=== PATIENT | male | born 1990 | race Caucasian/White ===

== ENCOUNTER 2018-02-03 09:25 | Emergency (ER) | payer OTHER ==
[2018-02-03 09:51] VITALS: BP 156/99; PULSE 76; TEMP 97.8; BMI 29.8
--- NOTE | 2018-02-03 10:45 | PDOC ---
History of Present Illness - General Chief Complaint: Toothache Stated Complaint: LT ARM NUMBNESS, MOUTH PAIN Time Seen by Provider: 02/03/18 10:34 History Source: Patient Exam Limitations: No Limitations - History of Present Illness Initial Comments: 02/03/18 10:40 Patient is a 27-year-old male, denies any significant medical history currently on no medication no allergies, presents with a left lower first molar pain. Pain started yesterday. No facial edema. No difficulty swallowing. Decayed tooth noted to area. No fever, denies any chest pain or shortness of breath. Has been decayed for several years. Has not contacted dental before today. Has not attempted to take any medication. Past Medical History: Denies. Allergies: No known allergies Medications: None Family History: Non-contributory Social History: Denies smoking, alcohol use, or IVDU Review of Systems GENERAL/CONSTITUTIONAL: No fever or chills. No weakness. No weight change. HEAD, EYES, EARS, NOSE AND THROAT: No change in vision. No ear pain or discharge. No sore throat. Left first lower molar pain CARDIOVASCULAR: No chest pain or shortness of breath. RESPIRATORY: No cough, wheezing, or hemoptysis. GASTROINTESTINAL: No nausea, vomiting, diarrhea or constipation. No rectal bleeding. GENITOURINARY: No dysuria, frequency, or change in urination. MUSCULOSKELETAL: No joint or muscle swelling or pain. No neck or back pain. SKIN AND BREASTS: No rash or easy bruising. NEUROLOGIC: No headache, vertigo, loss of consciousness, or loss of sensation. PSYCHIATRIC: No depression or anxiety. ENDOCRINE: No increased thirst. No abnormal weight change. HEMATOLOGIC/LYMPHATIC: No anemia, easy bleeding, or history of blood clots. ALLERGIC/IMMUNOLOGIC: No hives or skin allergy. No latex allergy. Physical Exam: GENERAL: The patient is awake, alert, and fully oriented, in no acute distress. EYES: Pupils equal, round and reactive to light, extraocular movements intact, sclera anicteric, conjunctiva clear. ENT: Ears normal, nares patent, oropharynx clear without exudates. Moist mucous membranes. No uvula deviation. Left first lower molar decay, root exposed , gumline intact, no visible abscess NECK: Normal range of motion, supple without lymphadenopathy, JVD, or masses. LUNGS: Breath sounds equal, clear to auscultation bilaterally. No wheezes, and no crackles. HEART: Regular rate and rhythm, normal S1 and S2 without murmur, rub or gallop. ABDOMEN: Soft, nontender, normoactive bowel sounds. No guarding, no rebound. No masses. No bruising or abrasions MUSCULOSKELETAL: Normal range of motion, no edema. No clubbing or cyanosis. No cords, erythema, or tenderness. No CVA Tenderness with fist. NEUROLOGICAL: Cranial nerves II through XII grossly intact. Normal speech, normal gait. SKIN: Warm, Dry, normal turgor, no rashes or lesions noted. No facial edema. 02/03/18 10:41 Past History - Past Medical History Allergies/Adverse Reactions: Allergies Allergy/AdvReac Type Severity Reaction Status Date / Time No Known Allergies Allergy Verified 02/03/18 09:45 Home Medications: Ambulatory Orders Amox-Tr/K Cl [Augmentin - 875Mg Tablet] 1 tab PO BID #14 tablet 02/03/18 Oxycodone HCl/Acetaminophen [Percocet 5-325 mg Tablet] 1 - 2 tab PO Q6H #16 tab MDD 8 02/03/18 CVA: No COPD: No DVT: No - Immunization History Immunization Up to Date: Yes - Suicide/Smoking/Psychosocial Hx Smoking History: Never smoked Have you smoked in the past 12 months: No Information on smoking cessation initiated: No Hx Alcohol Use: No Drug/Substance Use Hx: No Substance Use Type: None *Physical Exam - Vital Signs Last Vital Signs Temp Pulse Resp BP Pulse Ox 97.8 F 76 16 156/99 97 02/03/18 09:46 02/03/18 09:46 02/03/18 09:46 02/03/18 09:46 02/03/18 09:46 Medical Decision Making - Medical Decision Making 02/03/18 10:42 A/P: Patient here for evaluation of left lower first molar decay and pain. Root is exposed, there is no visible abscess, I will DC patient on Augmentin and Percocet in the emergency Department with prescription for 24 hour dose. Significant other is making an appointment for patient to see dentist today. *DC/Admit/Observation/Transfer Diagnosis at time of Disposition: Dental decay, Pain, dental - Discharge Dispostion Disposition: HOME Condition at time of disposition: Stable Admit: No - Prescriptions Prescriptions: Amox-Tr/K Cl [Augmentin - 875Mg Tablet] 1 tab PO BID #14 tablet Oxycodone HCl/Acetaminophen [Percocet 5-325 mg Tablet] 1 - 2 tab PO Q6H #16 tab MDD 8 - Referrals - Patient Instructions Printed Discharge Instructions: DI for Dental Pain Additional Instructions: Follow-up with dental upon discharge today, please let them know that I gave 2 Percocet while in emergency department. you urine have a prescription for Augmentin and Percocet for pain. - Post Discharge Activity Forms/Work/School Notes: Back to Work
== END 2018-02-03 10:47 | disposition home or self-care (01) ==
LOC: JERFT 09:25
DX: K02.9 Dental caries, unspecified (principal); K08.89 Other specified disorders of teeth and supporting structures
CPT/HCPCS: 99281-25